=== PATIENT | female | born 1980 | race Caucasian/White ===

== ENCOUNTER 2020-06-15 17:30 | Emergency (ER) | payer BC ==
[~2020-06-15] VITALS: Ht 162.6 cm; Wt 72.6 kg
--- NOTE | 2020-06-15 17:54 | NUR ---
DR Milian at the bedside for MSE.
[2020-06-15] MEDS ORDERED: HYDROMORPHONE 1 MG/1 ML DISP.SYRIN IM ONE (18:00)
[2020-06-15] MEDS ORDERED: ONDANSETRON 4 MG/2 ML VIAL IM ONE (18:00)
[2020-06-15] MEDS ORDERED: HYDROMORPHONE 2 MG/1 ML DISP.SYRIN ONE (18:02)
[2020-06-15] MEDS ORDERED: ONDANSETRON 4 MG/2 ML VIAL ONE (18:02)
--- NOTE | 2020-06-15 18:46 | NUR ---
Patient discharged to home in stable condition. Written and verbal after care instructions given. Patient verbalizes understanding of instructions. Stressed follow up or return to ER for worsening s/s.
[2020-06-15 18:47] VITALS: BP 153/89
== END 2020-06-15 18:48 | disposition home or self-care (01) ==
LOC: ER 17:33
DX: G43.909 Migraine, unspecified, not intractable, without status migrainosus (principal); Z98.41 Cataract extraction status, right eye; E03.9 Hypothyroidism, unspecified
CPT/HCPCS: 96372; 99283; J1170; J2405; A4663